=== PATIENT | female | born 1965 | race Caucasian/White ===

== ENCOUNTER 2022-12-18 11:06 | Day surgery (SDC) | payer BC ==
[2022-12-16 09:47] LABS: CARBON DIOXIDE,CO2 31.9 mmol/L (21.0-32.0); POTASSIUM,K 2.9 mmol/L (3.5-5.1)
[~2022-12-18 11:06] MED LIST: Lactated Ringers 1,000 ML IV SCH; Sodium Chloride 0.9% 10 ML Syringe FLUSH PRN; Sodium Chloride 0.9% 2.5 ML Syringe FLUSH PRN; Sodium Chloride 0.9% 20 ML SDV IV PRN; cefOXitin 1 GM in Premix Bag 1 BAG IV SCH
[2022-12-18] MEDS ORDERED: Ondansetron 4 MG/2 ML SDV IVPUSH PRN ×2 (11:25→15:35)
[2022-12-18] MEDS ORDERED: Metoclopramide 10 MG/2 ML SDV IVPUSH PRN (11:25)
[2022-12-18] MEDS ORDERED: fentaNYL 50 MCG/ML SDV IVPUSH PRN (11:25)
[2022-12-18] MEDS ORDERED: HYDROmorphone 1 MG/ML Syringe IVPUSH PRN (11:25)
[2022-12-18] MEDS ORDERED: Naloxone 0.4 MG/ML SDV IVPUSH PRN (11:25)
[2022-12-18] MEDS ORDERED: Morphine 2 MG/ML SYRINGE IVPUSH PRN (11:25)
[2022-12-18] MEDS ORDERED: Albuterol 0.083% 2.5 MG/3 ML Neb Soln NEB PRN (11:25)
[2022-12-18] MEDS ORDERED: fentaNYL 100 MCG/2 ML SDV ONE (12:42)
[2022-12-18] MEDS ORDERED: Lidocaine 2% 5 ML SDV ONE (12:42)
[2022-12-18] MEDS ORDERED: Ketorolac 30 MG/ML SDV ONE (12:42)
[2022-12-18] MEDS ORDERED: Dexamethasone 4 MG/ML 5 ML MDV ONE (12:42)
[2022-12-18] MEDS ORDERED: Rocuronium Bromide 50 MG/5 ML Syringe ONE (12:42)
[2022-12-18] MEDS ORDERED: Propofol 200 MG/20 ML SDV ONE (12:42)
[2022-12-18] MEDS ORDERED: cefOXitin 1 GM Vial ONE (12:42)
[2022-12-18] MEDS ORDERED: Sugammadex Sodium 200 MG/2 ML VIAL ONE (12:42)
[2022-12-18] MEDS ORDERED: Ondansetron 4 MG/2 ML SDV ONE (12:42)
[2022-12-18] MEDS ORDERED: Magnesium Sulfate (4.06 MEQ/ML) 5 GM/10 ML SDV ONE (13:28)
[2022-12-18] MEDS ORDERED: Promethazine 25 MG/ML SDV IM PRN (15:35)
[2022-12-18] MEDS ORDERED: Acetaminophen/oxyCODONE 325-5 MG Tab PO PRN ×2 (15:35)
[2022-12-18] MEDS ORDERED: Ketorolac 30 MG/ML SDV IVPUSH ONE (15:35)
[2022-12-18] MEDS ORDERED: Morphine 4 MG/ML Syringe IVPUSH PRN (15:35)
[2022-12-18] MEDS ORDERED: Ketorolac 30 MG/ML SDV IVPUSH PRN (18:45)
[2022-12-18] MEDS ORDERED: Losartan 50 MG Tab PO SCH (21:00)
[2022-12-18] MEDS ORDERED: atorvaSTATin 10 MG Tab PO SCH (21:00)
[2022-12-19 06:26] LABS: POTASSIUM,K 3.5 mmol/L (3.5-5.1)
[2022-12-19] MEDS ORDERED: Chlorthalidone 25 MG Tab PO SCH (09:00)
== END 2022-12-19 10:30 | disposition home or self-care (01) ==
LOC: MW.SDS 11:06 → MW.MS 15:35 → MW.SDS 12-19 10:30
PROVIDERS: ATTEND Obstetrics & Gynecology
DX: N72 Inflammatory disease of cervix uteri (principal); D25.9 Leiomyoma of uterus, unspecified; N80.03 Adenomyosis of the uterus; N83.201 Unspecified ovarian cyst, right side; N81.89 Other female genital prolapse; I10 Essential (primary) hypertension; K21.9 Gastro-esophageal reflux disease without esophagitis; E78.00 Pure hypercholesterolemia, unspecified; M19.90 Unspecified osteoarthritis, unspecified site; M81.0 Age-related osteoporosis without current pathological fracture; J30.9 Allergic rhinitis, unspecified; Z79.899 Other long term (current) drug therapy; Z98.890 Other specified postprocedural states
CPT/HCPCS: 36415; 58262; 80048; 84132; 84703; 85025; 85027; 86850; 86900; 86901; A9270; J0131; J0694; J1100; J1170; J2704; J3010; J3475; J3490; J7120; C1771; J1885; J2405; J7030

== ENCOUNTER 2023-07-20 10:16 | Day surgery (SDC) | payer BC ==
[~2023-07-20 10:16] MED LIST changes: -Sodium Chloride 0.9% 10 ML Syringe FLUSH PRN; -Sodium Chloride 0.9% 2.5 ML Syringe FLUSH PRN; -Sodium Chloride 0.9% 20 ML SDV IV PRN; -cefOXitin 1 GM in Premix Bag 1 BAG IV SCH
[2023-07-20] MEDS ORDERED: Ondansetron 4 MG/2 ML SDV ONE (12:18)
[2023-07-20] MEDS ORDERED: propofoL 50 ML ONE (12:18)
[2023-07-20] MEDS ORDERED: Lactated Ringers 1,000 ML IV SCH (13:30)
== END 2023-07-20 14:08 | disposition home or self-care (01) ==
LOC: MW.SDS 10:16
PROVIDERS: ATTEND Surgery
DX: Z12.11 Encounter for screening for malignant neoplasm of colon (principal); K57.30 Diverticulosis of large intestine without perforation or abscess without bleeding; E78.5 Hyperlipidemia, unspecified; I10 Essential (primary) hypertension; M85.80 Other specified disorders of bone density and structure, unspecified site; Z86.010 Personal history of colon polyps; Z79.899 Other long term (current) drug therapy; Z90.49 Acquired absence of other specified parts of digestive tract
CPT/HCPCS: 45378; J2405; J2704; J7120; 00812